=== PATIENT | female | born 1965 | race Caucasian/White ===

== ENCOUNTER → 2017-11-01 | Outpatient (CLI) | payer OTHER ==
[~2017-11-01] MED LIST: ATORVASTATIN CA10 MG PO; CYCLOBENZAPRINE10 MG PO; HYDROCODON-ACE1 EA15 PO; LISINOPRIL2.5 MG PO; SUCRALFATE1 GM PO
== END ==
LOC: MAMMO 11:19
PROVIDERS: ATTEND Internal Medicine
DX: Z12.31 Encounter for screening mammogram for malignant neoplasm of breast (principal)
CPT/HCPCS: 77067

== ENCOUNTER → 2018-03-24 | Outpatient (CLI) | payer OTHER ==
--- NOTE | 2018-03-24 14:43 | Diagnostic Imaging Report ---
Radiographs of the right hand - 3 views. Radiographs of the right wrist 3 views HISTORY: Pain COMPARISON: None available. FINDINGS: Bones: No acute displaced fracture. Osseous alignment is within normal limits. Joints: Scattered degenerative change. No osseous erosion. Soft tissues: The soft tissues appear unremarkable. IMPRESSION: Scattered degenerative change. No osseous erosion. Signed by: Dr. Pascual Berg M.D. on 03/24/2018 2:40 PM
== END ==
LOC: RAD 14:00
PROVIDERS: ATTEND Anesthesiology Pain Medicine
DX: M25.541 Pain in joints of right hand (principal)

== ENCOUNTER → 2018-06-13 | Outpatient (CLI) | payer OTHER ==
--- NOTE | 2018-06-14 12:37 | Diagnostic Imaging Report ---
Bone Scan, three-phase Reason for exam: Complex regional pain syndrome Radiopharmaceutical: Tc-99m MDP 28 mCi Comparison: RIght wrist radiograph 03/24/2018 Following intravenous administration of the radiopharmaceutical, dynamic flow and immediate blood pool images of the wrists and hands followed by delayed total body and selected spot images were obtained. Flow and blood pool images show diffusely increased tracer in the left wrist and hand compared to the right wrist and hand with focal increased tracer at the base of the left thumb. The delayed spot images show symmetric distribution of tracer activity in the small joints of the hands with focal increased tracer at the left trapezium. Distribution of tracer activity appears physiologic throughout the skeletal system except for the focal increased tracer in the left trapezium. Impression: 1. Scan findings do not shows complex regional pain syndrome in either upper extremity. 2. 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 3. No acute osteoblastic process in the right wrist to suggest an etiology of the patient's right wrist pain. Signed by: Dr. Rica Truong M.D. on 06/14/2018 12:34 PM
== END ==
LOC: NM 13:40
PROVIDERS: ATTEND Anesthesiology Pain Medicine
DX: G90.50 Complex regional pain syndrome I, unspecified (principal)
CPT/HCPCS: 78315; A9503

== ENCOUNTER → 2018-11-29 | Outpatient (CLI) | payer OTHER ==
--- NOTE | 2018-12-05 09:10 | Diagnostic Imaging Report ---
#[id number] - MGSCRBIL #BILATERAL DIGITAL SCREENING MAMMOGRAM WITH CAD: 11/29/2018 CLINICAL: Routine screening. Comparison is made to exams dated: 11/01/2017 mammogram and 08/20/2016 mammogram - [facility]. There are scattered fibroglandular elements in both breasts. Current study was also evaluated with a Computer Aided Detection (CAD) system. There are benign calcifications in both breasts. There also are benign lymph nodes in both breasts. No significant masses, calcifications, or other findings are seen in either breast. There has been no significant interval change. IMPRESSION: BENIGN There is no mammographic evidence of malignancy. A 1 year screening mammogram is recommended. The patient will be notified by letter of the results. NATHALY martin/josi:12/01/2018 15:49:47 Transport Medic: Rica TANNER(Fazal)(Artur), [facility] letter sent: Compared to Prior B9 Mammogram BI-RADS: 2 Benign
== END ==
LOC: MAMMO 12:24
PROVIDERS: ATTEND Internal Medicine
DX: Z12.31 Encounter for screening mammogram for malignant neoplasm of breast (principal)
CPT/HCPCS: 77067

== ENCOUNTER → 2019-01-13 | Outpatient (CLI) | payer OTHER ==
--- NOTE | 2019-01-16 11:30 | Diagnostic Imaging Report ---
History: Hands, feet and leg cramping, pain between shoulder blades Comparison studies: CT of the cervical spine 12/17/2015 Technique: Sagittal T1, T2 and IR, axial T2 and axial gradient echo Intravenous contrast: None Findings: Alignment: Normal lordosis. No scoliosis. Cervicomedullary junction: No abnormalities. Patent foramen magnum. Soft tissues: No T2 hyperintense inflammatory changes. Spinal cord: Normal in size and signal from the foramen magnum through T4. Surgical changes: Anterior fusion with plate and screws spanning from C5 through C7 Vertebrae: Normal in height and signal intensity. No fractures, infection or neoplasm. Degenerative changes: C2-C3: Disc degeneration with loss of T2 signal. Central disc osteophyte complex results in no significant canal stenosis or foraminal narrowing C3-C4: Disc degeneration with loss of T2 signal. Asymmetric left disc osteophyte complex and left uncinate process hypertrophy results in no significant canal stenosis, canal left foraminal narrowing. C4-C5: Disc degeneration with loss of T2 signal. Diffuse disc osteophyte complex and bilateral uncinate process hypertrophy results in no significant canal stenosis and mild bilateral foraminal narrowing. C5-C6: Obliterated intervertebral space. Mild bilateral uncinate process hypertrophy without significant canal stenosis and mild bilateral foraminal narrowing. C6-C7: Obliterated intervertebral space. Bilateral uncinate process hypertrophy without canal stenosis and mild bilateral foraminal narrowing, more prominent on the left. C7-T1: Left scratch that these degeneration with loss of T2 signal. Left uncinate process hypertrophy results in no canal stenosis and severe left foraminal narrowing IMPRESSION: 1. 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 2. Mild multilevel degenerative changes as described above. No significant canal stenosis. 3. Anterior fusion from C5 through C7 without complication. Signed by: DR Joey Dukes M.D. on 01/16/2019 11:27 AM
== END ==
LOC: MRI 13:18
PROVIDERS: ATTEND Nurse Practitioner Adult Health
DX: M96.1 Postlaminectomy syndrome, not elsewhere classified (principal)
CPT/HCPCS: 72141

== ENCOUNTER → 2020-06-11 | Outpatient (CLI) | payer OTHER | LOC: MAMMO 13:21 | PROVIDERS: ATTEND Internal Medicine | DX: Z12.31 Encounter for screening mammogram for malignant neoplasm of breast (principal); M85.80 Other specified disorders of bone density and structure, unspecified site | CPT/HCPCS: 77067; 77080 ==

== ENCOUNTER → 2021-06-17 | Outpatient (CLI) | payer OTHER | LOC: MAMMO 13:50 | PROVIDERS: ATTEND Internal Medicine | DX: Z12.31 Encounter for screening mammogram for malignant neoplasm of breast (principal) | CPT/HCPCS: 77067 ==

== ENCOUNTER → 2022-07-21 | Outpatient (CLI) | payer OTHER | LOC: MAMMO 11:48 | PROVIDERS: ATTEND Internal Medicine | DX: Z12.31 Encounter for screening mammogram for malignant neoplasm of breast (principal) | CPT/HCPCS: 77067 ==

== ENCOUNTER → 2023-10-28 | Outpatient (REF) | payer OTHER | LOC: RAD 11:45 | PROVIDERS: ATTEND Internal Medicine | DX: J45.41 Moderate persistent asthma with (acute) exacerbation (principal) | CPT/HCPCS: 71046 ==

== ENCOUNTER 2024-01-31 14:11 | Emergency (ER) | payer OTHER ==
[~2024-01-31] VITALS: Ht 160 cm; Wt 65.8 kg
[~2024-01-31 14:11] MED LIST changes: -NAPROXEN250 MG PO
[2024-01-31 14:19] VITALS: TEMP 98.2
[2024-01-31 14:34] LABS: BASOPHILS % 1.4 % (0.0-1.0); EOSINOPHILS # (AUTO) 4.1 (0.0-0.4); HEMATOCRIT 42.4 % (34.2-44.1); HEMOGLOBIN 11.8 g/dL (12.0-16.0); LYMPHOCYTES # (AUTO) 4.4 (1.0-3.2); LYMPHOCYTES % 6.4 % (18.0-39.1); MEAN CORPUSCULAR HEMOGLOBIN 22.8 pg (28-32); MEAN CORPUSCULAR HGB CONC 27.8 g/dL (31-35); MONOCYTES # (AUTO) 1.7 (0.2-0.8); MONOCYTES % 2.5 % (4.4-11.3); NEUTROPHILS # (AUTO) 54.7 (2.1-6.9); PLATELET COUNT 232 x10e3/uL (140-360); RED BLOOD COUNT 5.17 x10e6/uL (3.6-5.1); RED CELL DISTRIBUTION WIDTH 23.5 % (11.7-14.4)
[2024-01-31 14:37] LABS: WHITE BLOOD COUNT 68.37 x10e3/uL (4.8-10.8)
[2024-01-31 14:55] LABS: ALBUMIN 4.2 g/dL (3.5-5.0); ALBUMIN/GLOBULIN RATIO 1.1 (0.8-2.0); ANION GAP 15.2 mmol/L (8-16); BILIRUBIN,TOTAL 0.5 mg/dL (0.2-1.2); CALCIUM 10.1 mg/dL (8.4-10.2); CREATININE, SERUM 0.83 mg/dL (0.57-1.11); POTASSIUM 4.2 mmol/L (3.5-5.1)
[2024-01-31 15:01] LABS: TROPONIN I 0.001 ng/mL (0-0.300)
[2024-01-31] MEDS: SODIUM CHLORIDE 0.9% 1000ML 1,000 ML IV SCH (15:43)
[2024-01-31] MEDS ORDERED: NAPROXEN250 MG PO (16:41)
[2024-01-31] MEDS: KETOROLAC TROMETHAMINE 30 MG/ML VIAL IV STA (16:49)
[2024-01-31 16:58] VITALS: PULSE 89; RESP 18
[2024-01-31 17:35] LABS: EOSINOPHILS % (MANUAL) 4 % (0-7); LYMPHOCYTES % (MANUAL) 8 % (19-48); MONOCYTES % (MANUAL) 1 % (3.4-9.0); NEUTROPHILS % (MANUAL) 87 % (40-74)
[2024-01-31 17:36] LABS: HYPOCHROMASIA SLIGHT; PLATELET ESTIMATE ADEQUATE; PLATELET MORPHOLOGY COMMENT NORMAL; RBC MORPHOLOGY COMMENT NORMAL
[2024-01-31 17:37] VITALS: BP 117/79; PULSE 77; RESP 16; TEMP 98.2; O2SAT 100
== END 2024-01-31 17:39 | disposition home or self-care (01) ==
LOC: ER 14:30
DX: R07.89 Other chest pain (principal); Z79.60 Long term (current) use of unspecified immunomodulators and immunosuppressants; Z85.89 Personal history of malignant neoplasm of other organs and systems
CPT/HCPCS: 36415; 71045; 80053; 83690; 84484; 85025; 93005; 99284; J1885; J7030

== ENCOUNTER → 2024-01-31 | Outpatient (REF) | payer OTHER ==
[~2024-01-31] MED LIST changes: +NAPROXEN250 MG PO
== END ==
LOC: RAD 13:31
PROVIDERS: ATTEND Internal Medicine
DX: M47.22 Other spondylosis with radiculopathy, cervical region (principal)

== ENCOUNTER → 2024-03-15 | Outpatient (REF) | payer OTHER ==
[~2024-03-15] MED LIST changes: +GADOBENATE DIMEGLUMINE 1 ML IV ONE; +NAPROXEN250 MG PO
== END ==
LOC: MRI 10:40
PROVIDERS: ATTEND Anesthesiology Pain Medicine
DX: M54.12 Radiculopathy, cervical region (principal); M47.12 Other spondylosis with myelopathy, cervical region
CPT/HCPCS: 72156